=== PATIENT | female | born 1965 | race Caucasian/White ===

== ENCOUNTER 2017-11-01 12:40 | Emergency (ER) | payer OTHER ==
[~2017-11-01] VITALS: Ht 152.4 cm; Wt 81.6 kg
[2017-11-01 12:49] VITALS: Ht 152.4 cm; Wt 81.6 kg
[2017-11-01 15:08] VITALS: BP 155/97
== END 2017-11-01 15:08 | disposition home or self-care (01) ==
LOC: ED 12:40
DX: M72.2 Plantar fascial fibromatosis (principal); Z88.0 Allergy status to penicillin
CPT/HCPCS: Q0092